=== PATIENT | male | born 1965 | race Caucasian/White ===

== ENCOUNTER 2018-08-09 06:47 | Emergency (ER) | payer OTHER ==
[~2018-08-09] VITALS: Ht 188 cm; Wt 117.9 kg
[2018-08-09] MEDS ORDERED: NEURONTIN 300300 M1 PO (07:03)
[2018-08-09] MEDS ORDERED: LIPITOR10 MG PO (07:04)
[2018-08-09 07:07] LABS: URINE BILIRUBIN NEGATIVE (Negative); URINE BLOOD 1+ (Negative); URINE CLARITY CLEAR; URINE COLOR YELLOW; URINE GLUCOSE-RANDOM* NEGATIVE (Negative); URINE KETONES NEGATIVE (Negative); URINE LEUKOCYTES-REFLEX NEGATIVE (Negative); URINE NITRITE-REFLEX NEGATIVE (Negative); URINE PROTEIN (DIPSTICK) NEGATIVE (Negative); URINE SPECIFIC GRAVITY 1.025 (1.005-1.035); URINE UROBILINOGEN 0.2 E.U./dl (0.2-1.0)
[2018-08-09 07:14] LABS: ABSOLUTE NEUTROPHILS 9.6 thou/uL (1.4-8.2); BASOPHILS 0.4 % (0.0-2.0); EOSINOPHILS 0.1 % (0.0-3.0); HEMATOCRIT 40.6 % (42.0-52.0); HEMOGLOBIN 14.3 gm/dL (14.0-18.0); LYMPHOCYTES 11.1 % (24.0-44.0); MCH 30.9 pg (26.0-34.0); MCHC 35.2 g/dL (28.0-37.0); MONOCYTES 7.4 % (1.0-8.0); PLATELET COUNT 164 thou/uL (150-400); RBC 4.61 mil/uL (4.50-6.00); RDW 12.8 % (10.5-14.5); WBC 11.9 thou/uL (4.0-11.0)
[2018-08-09 07:20] LABS: CALCIUM 8.6 mg/dL (8.5-10.1); CREATININE 1.5 mg/dL (0.7-1.3); POTASSIUM 3.8 mmol/L (3.5-5.1)
[2018-08-09 07:38] LABS: BACTERIA-REFLEX 1-9 Few /HPF (None Seen); CASTS None Seen /LPF (None Seen); CRYSTALS None Seen /LPF (None Seen); SQUAMOUS 0-3 Few /LPF (0-3); URINE RBC 3-10 Few /HPF (0-2); URINE WBC-REFLEX 0-5 Rare /HPF (0-5)
[2018-08-09] MEDS ORDERED: FLOMAX0.4 MG PO (09:21)
[2018-08-09] MEDS ORDERED: SENNA-DOCUSATE1 EAC1 PO (09:21)
[2018-08-09] MEDS ORDERED: NORCO 7.5-3251 EACH PO (09:21)
[2018-08-09 09:39] VITALS: BP 126/69
== END 2018-08-09 09:43 | disposition home or self-care (01) ==
LOC: ER 06:47
PROVIDERS: Emergency Medicine
DX: N20.1 Calculus of ureter (principal)